=== PATIENT | female | born 1975 | race American Indian/Alaskan Native ===

== ENCOUNTER 2017-10-21 21:19 | Emergency (ER) | payer OTHER ==
[2017-10-21 22:27] LABS: Basophils # (Auto) 0.1 K/mm3 (0.0-0.1); Basophils % (Auto) 0.5 % (0.0-1.8); Eosinophils # (Auto) 0.2 K/mm3 (0.0-0.4); Eosinophils % (Auto) 1.2 % (0.0-4.3); Hemoglobin 13.1 gm/dl (10.1-14.3); Lymphocytes # (Auto) 2.8 K/mm3 (1.2-5.4); Lymphocytes % (Auto) 21.1 % (13.4-35.0); Mean Corpuscular HGB Conc 33 % (30-34); Mean Corpuscular Hemoglobin 28 pg (28-32); Mean Corpuscular Volume 85 fl (79-97); Monocytes % (Auto) 7.7 % (0.0-7.3); Platelet Count 320 K/mm3 (140-440); Red Cell Distribution Width 14.9 % (13.2-15.2)
[2017-10-21 22:40] LABS: BUN/Creatinine Ratio 11; Blood Urea Nitrogen 8 mg/dL (7-17); Calcium 9.8 mg/dL (8.4-10.2); Hemolysis Index 0
--- NOTE | 2017-10-22 01:06 | Emergency Department Report ---
ED Psych HPI - General Chief Complaint: Psych Stated Complaint: MENTAL HEALTH Time Seen by Provider: 10/22/17 01:05 Source: patient Mode of arrival: Ambulatory - History of Present Illness Initial Comments: Patient is a 42-year-old Pamela female who states she is having suicidal thoughts. Patient states she has a plan that she is going to drink antifreeze and take pills. Patient states she has not made any attempts to kill herself at this time and came in because she started living this way. Patient denies any homicidal ideations or audiovisual hallucinations. MD Complaint: suicidal ideation, feels depressed Quality: constant Improves With: none Worsens With: none Context: recent alcohol abuse, recent drug abuse Associated Symptoms: denies other symptoms - Related Data Previous Rx's Medication Instructions Recorded Last Taken Type HYDROcodone/APAP 5-325 [[place] 1 each PO Q6HR PRN #20 tablet 15 Unknown Rx 5/325] Meloxicam [Mobic] 7.5 mg PO QDAY #30 tablet 15 Unknown Rx Allergies Allergy/AdvReac Type Severity Reaction Status Date / Time No Known Allergies Allergy Unverified 07/22/15 10:16 ED Review of Systems ROS: Stated complaint: MENTAL HEALTH Other details as noted in HPI Comment: All other systems reviewed and negative ED Past Medical Hx - Past Medical History Hx Psychiatric Treatment: Yes (Depression, Anxiety, PTSD) - Surgical History Additional Surgical History: hysterectomy, C-sections - Social History Smoking Status: Never Smoker Substance Use Type: None - Medications Home Medications: Home Medications Medication Instructions Recorded Confirmed Last Taken Type HYDROcodone/APAP 5-325 [[place] 1 each PO Q6HR PRN #20 tablet 07/22/15 Unknown Rx 5/325] Meloxicam [Mobic] 7.5 mg PO QDAY #30 tablet 07/22/15 Unknown Rx ED Physical Exam - General Limitations: No Limitations General appearance: alert, in no apparent distress - Head Head exam: Present: atraumatic, normocephalic - Eye Eye exam: Present: normal appearance - ENT ENT exam: Present: mucous membranes moist - Neck Neck exam: Present: normal inspection - Respiratory Respiratory exam: Present: normal lung sounds bilaterally. Absent: respiratory distress - Cardiovascular Cardiovascular Exam: Present: regular rate, normal rhythm. Absent: systolic murmur, diastolic murmur, rubs, gallop - GI/Abdominal GI/Abdominal exam: Present: soft, normal bowel sounds - Extremities Exam Extremities exam: Present: normal inspection - Back Exam Back exam: Present: normal inspection - Neurological Exam Neurological exam: Present: alert, oriented X3 - Psychiatric Psychiatric exam: Present: normal affect, normal mood - Skin Skin exam: Present: warm, dry, intact, normal color. Absent: rash ED Course Vital Signs 10/21/17 10/22/17 21:55 01:32 Temperature 98.5 F Pulse Rate 78 Respiratory 18 18 Rate Blood Pressure 168/74 O2 Sat by Pulse 96 96 Oximetry ED Medical Decision Making - Lab Data Result diagrams: 10/21/17 22:08 10/21/17 22:08 - Medical Decision Making She is medically clear for psych placement Critical care attestation.: If time is entered above; I have spent that time in minutes in the direct care of this critically ill patient, excluding procedure time. ED Disposition Condition: Stable Referrals: NIKO BELL MD [Primary Care Provider] - 3-5 Days
[2017-10-22 08:26] LABS: Bacteria,Urine 1+ /HPF (Negative); Bilirubin,Urine NEG (Negative); Blood,Urine NEG (Negative); Color,Urine Yellow (Yellow); Mucus,Urine FEW /HPF; Protein,Urine <15 mg/dL mg/dL (Negative); Urobilinogen,Urine < 2.0 mg/dL (<2.0)
[2017-10-22 08:44] LABS: Amphetamine Screen,Urine PRESUMPTIVE NEGATIVE; Benzodiazepines Screen,Urine PRESUMPTIVE NEGATIVE; Cocaine Screen,Urine PRESUMPTIVE NEGATIVE; Methadone Screen,Urine PRESUMPTIVE NEGATIVE; Opiate Screen,Urine PRESUMPTIVE NEGATIVE
[2017-10-22 08:55] LABS: Cannabinoid Screen,Urine PRESUMPTIVE POSITIVE
[2017-10-22] MEDS ORDERED: ATIVAN ONE (18:00)
[2017-10-22] MEDS ORDERED: ATIVAN PO ONE (18:06)
[2017-10-23] MEDS ORDERED: ATIVAN PO ONE (13:06)
[2017-10-23] MEDS ORDERED: ATIVAN ONE (13:06)
[2017-10-24] MEDS: ATIVAN PO ONE (20:53)
[2017-10-25] MEDS ORDERED: ZESTRIL ONE (11:30)
[2017-10-25] MEDS ORDERED: ATIVAN ONE (11:31)
[2017-10-25] MEDS: ZESTRIL PO SCH (11:38)
[2017-10-25] MEDS: ATIVAN PO ONE (11:39)
[2017-10-25] MEDS ORDERED: celeXA PO SCH (21:00)
[2017-10-26] MEDS: ZESTRIL PO SCH (10:30)
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
[2017-10-26 15:51] VITALS: BP 130/65
--- NOTE | 2017-10-27 20:23 | Progress Note ---
Subjective - Reason for Consult Consult date: 10/24/17 Reason for consult: Psychiatric Follow-up Evaluation - Chief Complaint Chief complaint: Brittany is a 42 year old female who presents to [facility] for suicidal ideation. Today, patient reports " I feel alright." She verbalizes " I' m here because I was having suicidal thoughts and I needed to be put back on my medication. I haven't been taking my medication ." Patient reports difficulties with medication compliance due to financial stressors. When compliant with medications symptoms are well controlled. Initial psychiatric assessment will be documented later by seen provider. Mental Status Exam - Vital signs Last Vital Signs Temp 98.6 F 10/26/17 15:50 Pulse 87 10/26/17 15:50 Resp 18 10/26/17 15:50 BP 130/65 10/26/17 15:50 Pulse Ox 98 10/26/17 13:41 - Exam Narrative exam: Mental Status Exam General Appearance: Causally Dressed-hospital gown Eye Contact: Poor Orientation: Alert and oriented x4 ( person, place, time, and situation) Attitude/Behavior: Cooperative Sensorium: Clear Psychomotor & Musculoskeletal Activity: WNL Mood: Anxious, depressed Affect: Constricted Speech/Language: Normal rate and tone Thought Processes: Circumstantial Thought Content: Reality oriented Perception: WNL Concentration/Attention: Impaired Suicidal Ideations/Plan: + suicidal ideation with plan (intermittent) Homicidal Ideations/Plan: Patient denies Assessment and Plan Impression: Brittany is a 42 year old female who presents to [facility] emergency room for suicidal ideations. Today she presents anxious and depressed. She endorses suicidal ideation. She denies A/VH and thoughts of delusions. DDx: MDD, recurrent, severe without psychosis Plan: 1. Continue 1013 and reassess on 10/25/17. 2. Initiate drug therapy. 3. Assist with placement to inpatient facility.
--- NOTE | 2017-10-27 20:24 | Progress Note ---
Subjective - Reason for Consult Consult date: 10/25/17 Reason for consult: Psychiatric Follow-up Evaluation - Chief Complaint Chief complaint: "I'm feeling alright." Brittany is a 42 year old female who presents to [facility] for suicidal ideation. Today, patient reports " I'm feeling alright." She states " The depression is the same." She continues to endorse suicidal thoughts with plans to crash car, as well as, increase anxiety related to school and finances. Patient would like to restart medication. Mental Status Exam - Vital signs Last Vital Signs Temp 98.6 F 10/26/17 15:50 Pulse 87 10/26/17 15:50 Resp 18 10/26/17 15:50 BP 130/65 10/26/17 15:50 Pulse Ox 98 10/26/17 13:41 - Exam Narrative exam: Mental Status Exam General Appearance: Causally Dressed-hospital gown Eye Contact: Intermittent Orientation: Alert and oriented x4 ( person, place, time, and situation) Attitude/Behavior: Cooperative Sensorium: Clear Psychomotor & Musculoskeletal Activity: WNL Mood: "Still depressed. " Anxious, depressed Affect: Constricted Speech/Language: Normal rate and tone Thought Processes: Organized Thought Content: Reality oriented Perception: WNL Concentration/Attention: Impaired Suicidal Ideations/Plan: + suicidal ideation with plan (intermittent)- "crash car." Homicidal Ideations/Plan: Patient denies Assessment and Plan Impression: Brittany is a 42 year old female who presents to [facility] emergency room for suicidal ideations. Today, she presents anxious and depressed. She continues to endorse suicidal ideation with a plan to crash car. She denies A/VH and thoughts of delusions. DDx: MDD, recurrent, severe without psychosis Plan: 1. Continue 1013 and reassess on 10/26/17. 2. Begin Celexa 20 mg po QHS- depression/anxiety. 3. Educate patient on medications' indications, frequency, and possible side effects. 4. Will continue to monitor.
== END 2017-10-26 20:00 ==
LOC: ED 21:19
DX: F32.9 Major depressive disorder, single episode, unspecified (principal); F41.9 Anxiety disorder, unspecified; F43.10 Post-traumatic stress disorder, unspecified; Z90.710 Acquired absence of both cervix and uterus; Z79.899 Other long term (current) drug therapy
CPT/HCPCS: 36415; 80048; 80307; 81001; 85025; 99285; G0480; 80320

== ENCOUNTER 2020-06-22 11:06 | Outpatient (CLI) | payer OTHER ==
--- NOTE | 2020-06-22 12:20 | XRay Report ---
XR foot BILAT 2V INDICATION: PAIN IN LEFT AND RIGHT FOOT. COMPARISON: None available. FINDINGS: There are no focal bone erosions or areas of focal osteopenia to suggest inflammatory arthropathy. Th ere is no significant degenerative change. There are no focal bone lesions. Signer Name: Tacho Tse MD Signed: 06/22/2020 12:16 PM Workstation Name: [id number]
--- NOTE | 2020-06-22 12:22 | XRay Report ---
XR hand BILAT 2V INDICATION: PAIN IN LEFT AND RIGHT HAND. COMPARISON: None available. FINDINGS: There is a questionable marginal erosion along the radial aspect of the left fifth middle phalanx hea d. There are no additional focal bone erosions or areas of focal osteopenia to otherwise suggest infl ammatory arthropathy. There is no significant degenerative change in either hand. Signer Name: Tacho Tse MD Signed: 06/22/2020 12:17 PM Workstation Name: [id number]
== END 2020-06-22 11:07 | disposition home or self-care (01) ==
LOC: XRAY 11:06
PROVIDERS: ATTEND Internal Medicine
DX: M79.641 Pain in right hand (principal); M79.642 Pain in left hand; M79.671 Pain in right foot; M79.672 Pain in left foot